=== PATIENT | male | born 1930 | race Caucasian/White ===

== ENCOUNTER 2016-03-23 15:14 | Outpatient (RCR) | payer MEDICARE | END 2016-06-21 | disposition home or self-care (01) | LOC: ONC 15:14 | PROVIDERS: ATTEND Radiology Radiation Oncology | DX: C61 Malignant neoplasm of prostate (principal) | CPT/HCPCS: 99213 ==

== ENCOUNTER → 2016-06-29 | Outpatient (CLI) | payer MEDICARE | LOC: EDSTATUS 06-22 13:11 → ONC 13:13 | PROVIDERS: ATTEND Radiology Radiation Oncology | DX: C61 Malignant neoplasm of prostate (principal) | CPT/HCPCS: 36415; 84153; 99213 ==

== ENCOUNTER → 2016-08-09 | Outpatient (CLI) | payer MEDICARE ==
[~2016-08-09] MED LIST: CATHETER FLUSH 10 ML SYR IV PRN; GADOBUTROL 10 MMOL/10 ML (GADAVIST) VIAL IV ONE
--- NOTE | 2016-08-09 15:09 | Diagnostic Imaging Report ---
Whole body bone scan. Technique: After the intravenous administration of 27 mCi of Technetium 99m MDP, whole body delayed phase bone scan images were obtained with lateral views of the head and neck and the chest regions. Indication: Prostate cancer. Findings: When compared to 03/13/2012, there are foci of increased uptake of [id number] intensity seen along the lateral left lower ribs that appears to involve the eighth and ninth and to lesser extent, the seventh left ribs laterally. The pattern is in favor of trauma related activity. There is no other intense foci of suspicious activity seen within the axial skeleton in particular to suggest metastatic disease. Degenerative joint pattern of activity generally mild is seen, more prominent in the left knee and in the ankles. Urinary tract excretion is noted. IMPRESSION: Mild to moderate activity in lateral lower left ribs is favored to be posttraumatic with no scintigraphic evidence of osseous metastasis. Dictated by: Dictated on workstation # [id number]
--- NOTE | 2016-08-09 15:38 | Diagnostic Imaging Report ---
PROCEDURE: MRI right joint lower extremity with and without contrast. TECHNIQUE: Multiplanar, multisequence pre and post contrast-enhanced ROB of the right joint lower extremity was accomplished. INDICATION: History of prostate cancer. Right hip pain. FINDINGS: The right hip demonstrates subchondral edema in the lateral aspect of the acetabulum. This is associated with increased signal in the anterior lateral aspect of the labrum which may relate to degeneration or tear. There is adjacent paralabral cyst noted. There is a small right hip effusion. There is also suggestion of prominent cartilage thinning in the medial and lateral aspect of the acetabulum. Subchondral edema along the femoral head is seen. There is also edema noted around the gluteus medius tendon insertion site may relate to tendinitis. The right iliopsoas tendon is normal. The muscles around the right hip demonstrates normal signal and bulk. The osseous structures demonstrate no suspicious lesion. IMPRESSION: 1. Degenerative changes in the right hip with cartilage thinning and anterior lateral labral tear or degeneration seen. 2. There is bilateral edema around the gluteus medius tendon insertion suggestive of tendinitis. Dictated by: Dictated on workstation # [id number]
== END ==
LOC: CARD 11:08
PROVIDERS: ATTEND Internal Medicine Hematology & Oncology
DX: C61 Malignant neoplasm of prostate (principal); M25.551 Pain in right hip
CPT/HCPCS: 73723; 78306

== ENCOUNTER 2016-08-11 11:46 | Outpatient (RCR) | payer MEDICARE, OTHER ==
[2016-08-03 10:29] LABS: BASOPHILS % (AUTO) 0 % (0-10); EOSINOPHILS # (AUTO) 0.1 10^3/uL (0.0-0.3); EOSINOPHILS % (AUTO) 2 % (0-10); LYMPHOCYTES # (AUTO) 1.9 X 10^3 (1.0-4.0); LYMPHOCYTES % (AUTO) 28 % (12-44); MEAN CORPUSCULAR HEMOGLOBIN 34 PG (25-34); MEAN CORPUSCULAR HGB CONC 34 G/DL (32-36); MEAN CORPUSCULAR VOLUME 100 FL (80-99); MEAN PLATELET VOLUME 9.9 FL (7.4-10.4); MONOCYTES # (AUTO) 0.7 X 10^3 (0.0-1.0); MONOCYTES % (AUTO) 10 % (0-12); NEUTROPHILS % (AUTO) 60 % (42-75); PLATELET COUNT 202 10^3/uL (130-400); RED BLOOD COUNT 4.42 10^6/uL (4.35-5.85); RED CELL DISTRIBUTION WIDTH 12.7 % (10.0-14.5); WHITE BLOOD COUNT 6.7 10^3/uL (4.3-11.0)
[2016-08-03 10:56] LABS: ALBUMIN 4.2 G/DL (3.2-4.5); BILIRUBIN,TOTAL 0.5 MG/DL (0.1-1.0); CALCIUM 9.3 MG/DL (8.5-10.1); CREATININE SERUM 1.23 MG/DL (0.60-1.30); POTASSIUM 4.6 MMOL/L (3.6-5.0); TOTAL PROTEIN 6.6 G/DL (6.4-8.2)
== END 2016-11-01 | disposition home or self-care (01) ==
LOC: ONC 11:46
PROVIDERS: ATTEND Internal Medicine Hematology & Oncology
DX: C61 Malignant neoplasm of prostate (principal); R97.21 Rising PSA following treatment for malignant neoplasm of prostate; M25.551 Pain in right hip; G25.0 Essential tremor; I10 Essential (primary) hypertension; Z79.899 Other long term (current) drug therapy; Z92.3 Personal history of irradiation
CPT/HCPCS: 36415; 80053; 84153; 85025; 99213; 99214

== ENCOUNTER 2017-02-01 09:30 | Outpatient (RCR) | payer MEDICARE, OTHER ==
[2017-02-01 09:47] LABS: BASOPHILS % (AUTO) 1 % (0-10); EOSINOPHILS # (AUTO) 0.2 10^3/uL (0.0-0.3); EOSINOPHILS % (AUTO) 3 % (0-10); HEMATOCRIT 46 % (40-54); HEMOGLOBIN 15.8 G/DL (13.3-17.7); LYMPHOCYTES # (AUTO) 2.4 X 10^3 (1.0-4.0); LYMPHOCYTES % (AUTO) 36 % (12-44); MEAN CORPUSCULAR HEMOGLOBIN 33 PG (25-34); MEAN CORPUSCULAR HGB CONC 34 G/DL (32-36); MEAN CORPUSCULAR VOLUME 97 FL (80-99); MEAN PLATELET VOLUME 10.7 FL (7.4-10.4); MONOCYTES # (AUTO) 0.7 X 10^3 (0.0-1.0); MONOCYTES % (AUTO) 11 % (0-12); NEUTROPHILS # (AUTO) 3.3 X 10^3 (1.8-7.8); NEUTROPHILS % (AUTO) 50 % (42-75); PLATELET COUNT 194 10^3/uL (130-400); RED BLOOD COUNT 4.73 10^6/uL (4.35-5.85); RED CELL DISTRIBUTION WIDTH 12.3 % (10.0-14.5); WHITE BLOOD COUNT 6.6 10^3/uL (4.3-11.0)
[2017-02-01 10:14] LABS: ALBUMIN 4.4 GM/DL (3.2-4.5); BILIRUBIN,TOTAL 0.6 MG/DL (0.1-1.0); CALCIUM 9.6 MG/DL (8.5-10.1); CREATININE SERUM 1.19 MG/DL (0.60-1.30); POTASSIUM 4.4 MMOL/L (3.6-5.0); TOTAL PROTEIN 7.1 GM/DL (6.4-8.2)
== END 2017-05-02 | disposition home or self-care (01) ==
LOC: ONC 09:30
PROVIDERS: ATTEND Internal Medicine Hematology & Oncology
DX: C61 Malignant neoplasm of prostate (principal); R97.21 Rising PSA following treatment for malignant neoplasm of prostate; M25.551 Pain in right hip; G25.0 Essential tremor; I10 Essential (primary) hypertension; Z79.899 Other long term (current) drug therapy; Z92.3 Personal history of irradiation
CPT/HCPCS: 36415; 80053; 84153; 85025; 99213